=== PATIENT | male | born 1970 | race Caucasian/White ===

== ENCOUNTER 2018-03-21 09:15 | Emergency (ER) | payer OTHER | END 2018-03-21 10:35 | disposition home or self-care (01) | LOC: ERS 09:15 | DX: A38.9 Scarlet fever, uncomplicated (principal); F41.9 Anxiety disorder, unspecified; F32.9 Major depressive disorder, single episode, unspecified | CPT/HCPCS: 99283 ==

== ENCOUNTER 2018-08-07 14:13 | Emergency (ER) | payer OTHER ==
[2018-08-07] MEDS ORDERED: Fluorescein Opthalmic Strip ONE (14:25)
[2018-08-07] MEDS ORDERED: Adacel (T-DAP) 0.5 ML SYRINGE ONE (15:09)
== END 2018-08-07 15:12 | disposition home or self-care (01) ==
LOC: SCSER 14:13
DX: T15.02XA Foreign body in cornea, left eye, initial encounter (principal); F41.9 Anxiety disorder, unspecified; F32.9 Major depressive disorder, single episode, unspecified
CPT/HCPCS: 65220; 90471; 90715

== ENCOUNTER 2018-11-06 12:44 | Outpatient (CLI) | payer OTHER ==
[~2018-11-06 12:44] MED LIST: EPINEPHrine 1 MG/ML AMP ONE; Gadobenate Dimeglumine 529 MG/1 ML (20ML VIAL) ONE; Iopamidol 300 61% 30 ML VIAL ONE; Lidocaine 1% PF 10 ML AMP ONE
--- NOTE | 2018-11-06 14:24 | RAD ---
EXAM RIGHT SHOULDER ARTHROGRAM: 11/06/18 HISTORY: Right shoulder pain. COMPARISON: None. EXPOSURE: 0.4 minutes. 86.2 uGy*m2. FINDINGS: Initial perinatal specialist radiograph of the right shoulder demonstrates preservation of the glenohumeral joint sp neeraj. No fracture or dislocation. The visualized ribs are unremarkable. IMPRESSION: Successful right shoulder arthrogram. A total of 12 mg of contrast admixture was administered to the joint space. No immediate or postprocedure complications. TECHNIQUE: Consent obtained to perform a right shoulder arthrogram. Right shoulder was prepped and draped in a s terile fashion. 1% lidocaine, buffered with sodium bicarbonate and used for local anesthesia. Under fluoroscopic guidance, a 22 gauge spinal needle was advanced into the right shoulder joint space. Tot al of 12 mL of the contrast admixture was administered in the joint space. The patient tolerated the procedure well. No immediate or postprocedure complication. IMPRESSION: Successful right shoulder arthrogram. Refer to separate post arthrogram MRI report for further detail s. POS: [facility]
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
== END 2018-11-06 12:45 | disposition home or self-care (01) ==
LOC: RAD 12:44
PROVIDERS: ATTEND Family Medicine
DX: M25.511 Pain in right shoulder (principal); S43.491A Other sprain of right shoulder joint, initial encounter; M19.011 Primary osteoarthritis, right shoulder; Z98.890 Other specified postprocedural states
CPT/HCPCS: 23350; A9577; J0171; J2001; Q9967